=== PATIENT | female | born 1970 | race Caucasian/White ===

== ENCOUNTER 2017-04-23 10:47 | Emergency (ER) | payer OTHER ==
[~2017-04-23] VITALS: Ht 162.6 cm; Wt 99.8 kg
[2017-04-23 10:54] VITALS: BP 154/4; PULSE 84; RESP 16; TEMP 98.6; O2SAT 97
[2017-04-23] MEDS ORDERED: HYDROcodone/ACETAMIN 5-325 MG TAB (NORCO/ VICODIN) PO ONE (11:45)
[2017-04-23 11:50] LABS: BILIRUBIN,URINE NEGATIVE (NEGATIVE); BLOOD, URINE 3+ (NEGATIVE); CLARITY/URINE SL HAZY (CLEAR); COLOR,URINE YELLOW (YELLOW); GLUCOSE,URINE NEGATIVE (NEGATIVE); KETONES,URINE NEGATIVE (NEGATIVE); LEUKOCYTE ESTERASE ,URINE 2+ (NEGATIVE); NITRITE, URINE NEGATIVE (NEGATIVE); PROTEIN URINE NEGATIVE (NEGATIVE); UROBILINOGEN,URINE 0.2 (0.2-1.0)
[2017-04-23 12:19] LABS: BACTERIA,URINE FEW /HPF (None Seen)
[2017-04-23 12:20] LABS: MUCUS,URINE None Seen /LPF (None Seen)
[2017-04-23] MEDS ORDERED: NS 500 ML IV ONE (12:30)
[2017-04-23] MEDS ORDERED: IBUPROFEN 800 MG TABLET PO ONE (12:45)
[2017-04-23 12:46] VITALS: BP 147/92; PULSE 84; RESP 16; TEMP 98.6; O2SAT 97
== END 2017-04-23 12:46 | disposition home or self-care (01) ==
LOC: SED 10:47
DX: N39.0 Urinary tract infection, site not specified (principal); Z91.041 Radiographic dye allergy status
CPT/HCPCS: 81000-TC; 81025; 87086; 87186-TC; 99284